=== PATIENT | male | born 1975 | race Two or more races ===

== ENCOUNTER 2020-03-25 21:45 | Emergency (ER) | payer SELFPAY ==
[~2020-03-25] VITALS: Ht 175.3 cm; Wt 79.4 kg
[2020-03-25 22:00] VITALS: BP 115/82
--- NOTE | 2020-03-25 22:07 | Emergency Room Report ---
History of Present Illness General Chief Complaint: Substance Abuse Source: Patient Present Illness HPI Disclaimer: Please note that this report is being documented using DRAGON technology. This can lead to erroneous entry secondary to incorrect interpretation by the dictating instrument. HPI: Is a 44-year-old male brought in by EMS for alcohol intoxication. Patient is awake but refusing to answer any questions. He is moving all extremities, protecting his airway, making good eye contact but simply refusing to speak to me. Per EMS, family called because he has a history of alcohol abuse and they found him drinking rubbing alcohol earlier today. Unclear how much he ingested. Unclear what type of alcohol it was. Unknown if there are coingestants. No further information available from EMS. Patient uncooperative. PMH: Unable to obtain PSH: Unable to obtain Allergies: Unable to obtain Social Hx: Reported alcohol abuse per EMS Allergies: Coded Allergies: No Known Allergies (Unverified , 03/25/20) COVID-19 Screening Contact w/high risk pt: No Experienced COVID-19 symptoms?: No COVID-19 Testing performed [employer]: Yes - february 2020 COVID-19 Screening: Negative COVID-19 COVID-19 Testing Source: [facility] Nursing Documentation-PMH Past Medical History: No History, Except For Review of Systems All Other Systems: negative except mentioned in HPI Physical Exam Vital Signs Date Time Temp Pulse Resp B/P (MAP) Pulse Ox O2 Delivery O2 Flow Rate FiO2 03/25/20 21:46 98.4 100 16 110/70 (83) 98 Room Air General: Awake, no acute distress HEENT: NC/AT. PERRLA. EOMI. Cardiovascular: RRR. S1 and S2 normal. No murmur appreciated Resp: Normal work of breathing. No cough, wheezing or crackles appreciated Abdomen: Abdomen is soft, nondistended. Nontender Skin: Intact. No abrasions, laceration or rash over the exposed skin MSK: Normal tone and bulk. Moving all extremities. No obvious deformity. Neuro: Awake and alert. Refusing to speak but making good eye contact. Can follow commands. Medical Decision Making Diagnostic Impression: Primary Impression: Isopropyl alcohol poisoning ER Course Is a 44-year-old male brought in for report intoxication. EMS states family stop drinking rubbing alcohol. CBC unremarkable. Chemistry shows mild IKER with creatinine 1.7 BUN 6. Trace ketones. Serum alcohol low. Patient now admits to drinking a small bottle of isopropyl alcohol. He was awake, no respiratory distress, vital signs stable. 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 He may be discharged after IV fluids. Given thiamine and folate. Patient family informed of dangers of drinking toxic alcohols including isopropyl. Instructed to follow-up with PMD and to return with new or worsening symptoms. Laboratory Tests Test 03/25/20 22:20 White Blood Count 6.7 K/UL (4.8-10.8) Red Blood Count 5.37 M/UL (4.70-6.10) Hemoglobin 15.3 G/DL (14.2-18.0) Hematocrit 44.8 % (42.0-52.0) Mean Corpuscular Volume 83 FL (80-99) Mean Corpuscular Hemoglobin 28.4 PG (27.0-31.0) Mean Corpuscular Hemoglobin Concent 34.1 G/DL (32.0-36.0) Red Cell Distribution Width 18.8 % (11.6-14.8) H Platelet Count 230 K/UL (150-450) Mean Platelet Volume 5.5 FL (6.5-10.1) L Neutrophils (%) (Auto) % (45.0-75.0) Lymphocytes (%) (Auto) % (20.0-45.0) Monocytes (%) (Auto) % (1.0-10.0) Eosinophils (%) (Auto) % (0.0-3.0) Basophils (%) (Auto) % (0.0-2.0) Differential Total Cells Counted 100 Neutrophils % (Manual) 35 % (45-75) L Lymphocytes % (Manual) 59 % (20-45) H Monocytes % (Manual) 5 % (1-10) Eosinophils % (Manual) 0 % (0-3) Basophils % (Manual) 1 % (0-2) Band Neutrophils 0 % (0-8) Platelet Estimate Adequate Platelet Morphology Normal Polychromasia 1+ Anisocytosis 1+ Sodium Level 146 MMOL/L (136-145) H Potassium Level 4.1 MMOL/L (3.5-5.1) Chloride Level 109 MMOL/L (98-107) H Carbon Dioxide Level 30 MMOL/L (21-32) Anion Gap 7 mmol/L (5-15) Blood Urea Nitrogen 6 mg/dL (7-18) L Creatinine 1.7 MG/DL (0.55-1.30) H Estimated Glomerular Filtration Rate 44.4 mL/min (>60) Glucose Level 107 MG/DL (74-106) H Calcium Level 8.8 MG/DL (8.5-10.1) Total Bilirubin 0.3 MG/DL (0.2-1.0) Aspartate Amino Transferase (AST) 31 U/L (15-37) Alanine Aminotransferase (ALT) 35 U/L (12-78) Alkaline Phosphatase 75 U/L (46-116) Total Protein 7.8 G/DL (6.4-8.2) Albumin 4.1 G/DL (3.4-5.0) Globulin 3.7 g/dL Albumin/Globulin Ratio 1.1 (1.0-2.7) Salicylates Level 0.9 ug/mL (2.8-20) L Acetaminophen Level < 2 MCG/ML (10-30) L Serum Alcohol 6 mg/dL Acetone Level Positive-small (NEGATIVE) Last Vital Signs Date Time Temp Pulse Resp B/P (MAP) Pulse Ox O2 Delivery O2 Flow Rate FiO2 03/25/20 21:46 98.4 100 16 110/70 (83) 98 Room Air Disposition: HOME, SELF-CARE Condition: Stable Scripts Folic Acid* (FOLIC ACID*) 1 Mg Tablet 1 MG ORAL DAILY for SUPPLEMENT, #30 TAB Prov: Navneet Duran MD 03/26/20 Thiamine Hcl* (VITAMIN B-1*) 100 Mg Tablet 100 MG ORAL DAILY, #30 TAB 0 Refills Prov: Navneet Duran MD 03/26/20 Navneet Duran MD Mar 25, 2020 22:07
[2020-03-25 22:48] LABS: HEMATOCRIT 44.8 % (42.0-52.0); HEMOGLOBIN 15.3 G/DL (14.2-18.0); MEAN CORPUSCULAR VOLUME 83 FL (80-99); PLATELET COUNT 230 K/UL (150-450); RED BLOOD COUNT 5.37 M/UL (4.70-6.10); RED CELL DISTRIBUTION WIDTH 18.8 % (11.6-14.8); WHITE BLOOD COUNT 6.7 K/UL (4.8-10.8)
[2020-03-25 23:02] LABS: ANION GAP 7 mmol/L (5-15); BLOOD UREA NITROGEN 6 mg/dL (7-18); CALCIUM 8.8 MG/DL (8.5-10.1); CARBON DIOXIDE 30 MMOL/L (21-32); CHLORIDE 109 MMOL/L (98-107); CREATININE 1.7 MG/DL (0.55-1.30); POTASSIUM 4.1 MMOL/L (3.5-5.1); SODIUM 146 MMOL/L (136-145)
[2020-03-25 23:07] LABS: ALANINE AMINOTRANSFERASE 35 U/L (12-78); ALBUMIN 4.1 G/DL (3.4-5.0); ALBUMIN/GLOBULIN RATIO 1.1 (1.0-2.7); ALKALINE PHOSPHATASE 75 U/L (46-116); ASPARTATE AMINO TRANSFERASE 31 U/L (15-37); BILIRUBIN,TOTAL 0.3 MG/DL (0.2-1.0)
[2020-03-26] MEDS ORDERED: FOLIC ACID1 MG ORAL (00:16)
[2020-03-26] MEDS ORDERED: VITAMIN B-1100 MG ORAL (00:16)
[2020-03-26 02:37] VITALS: BP 122/78
== END 2020-03-26 02:37 | disposition home or self-care (01) ==
LOC: EDBD 21:45 → EMR 22:14
DX: T51.2X1A Toxic effect of 2-Propanol, accidental (unintentional), initial encounter (principal); Y92.9 Unspecified place or not applicable; F10.10 Alcohol abuse, uncomplicated
CPT/HCPCS: 36415; 80053; 80307; 82009; 85007; 85025; 96360; 96361; 99284; G0480; J7030